=== PATIENT | male | born 1980 | race Caucasian/White ===

== ENCOUNTER 2021-09-07 09:22 | Emergency (ER) | payer OTHER, SELFPAY ==
[2021-09-07 09:28] VITALS: BP 156/123; PULSE 97; RESP 16; TEMP 36.8; O2SAT 99
--- NOTE | 2021-09-07 09:59 | ED.URI ---
HPI - URI/Sore Throat General Chief Complaint: Upper Respiratory Infection Stated Complaint: Sore Throat/Ear Pain Time Seen by Provider: 09/07/21 09:49 Source: patient and RN notes reviewed Mode of arrival: ambulatory Limitations: no limitations History of Present Illness HPI Narrative: Patient presents today with a 2-day history of sore throat, cough, congestion, left ear pain. Patient also reports muffled hearing to the left ear. Denies fever or shortness of breath. He has tried no medication for symptoms prior to arrival. MD elicited complaint: cough and sore throat Related Data Home Medications Medication Instructions Recorded Confirmed cholecalciferol (vitamin D3) 125 125 mcg PO DAILY 09/25/19 09/07/21 mcg (5,000 unit) capsule testosterone cypionate 100 mg/mL 50 mg IM .2xweek ml 09/25/19 09/07/21 intramuscular oil Allergies Allergy/AdvReac Type Severity Reaction Status Date / Time No Known Allergies Allergy Unverified 09/07/21 09:44 Review of Systems Review of Systems: CONSTITUTIONAL: Denies body aches, fever, chills, or sweats. EYES: Denies visual changes, redness, or discharge. ENT: Denies rhinorrhea. + Sore throat, congestion, left ear pain CARDIOVASCULAR: Denies chest pain, palpitations, or edema. RESPIRATORY: Denies dyspnea.+ Left ear pain GASTROINTESTINAL: Denies abdominal pain, nausea, vomiting, or diarrhea. GENITOURINARY: Denies dysuria or hematuria. SKIN: Denies rash, itching, or wounds. MUSCULOSKELETAL: Denies back pain, joint pain, or myalgia. NEUROLOGIC: Denies headache, numbness, tingling, or weakness. PSYCH: Denies depression or anxiety. [facility] Past Medical History Medical History Essential (primary) hypertension GERD (gastroesophageal reflux disease) Hypogonadism in male Obesity Surgical History Surgical History History of hip replacement Family History Family History Mother Heart disease Father Diabetes mellitus Heart disease Grandparent ALS (amyotrophic lateral sclerosis) Grandparent Heart disease Social History Social History Smoking status: Never smoker Alcohol intake: current Drinks per week: 2 Comments At time of signature, I have reviewed and agree with nursing past medical, surgical, social and family history unless otherwise noted. Please see nursing chart for further information. There is no relevant family history pertinent to the presenting complaint Exam Narrative: GENERAL: Well-appearing, well-nourished, and in no acute distress. HEAD: Normocephalic, atraumatic. EYES: EOMI. No redness or drainage. Conjunctivae normal. ENT: Mucous membranes pink and moist. Nares clear. No rhinorrhea. Right TM normal. Left TM is severely erythematous and bulging with purulent material. Throat erythematous with mild edema. No exudate. Uvula midline. NECK: Normal AROM. Supple. No lymphadenopathy. CHEST: No respiratory distress. Clear to auscultation. HEART: Regular rate and rhythm. No murmur appreciated. Normal peripheral pulses. EXTREMITIES: Normal range of motion. No edema. SKIN: Warm, dry, no rash. Capillary refill normal. Normal skin turgor. NEURO: No focal deficits. Alert and oriented x3. Gait steady. PSYCH: Normal affect. No signs of depression or anxiety. Course Course Level of Care: Express Care Visit Vital Signs Vital signs: Vital Signs Temperature 98.2 F 09/07/21 09:28 Pulse Rate 97 09/07/21 09:28 Respiratory Rate 16 09/07/21 09:28 Blood Pressure 156/123 H 09/07/21 09:28 Pulse Oximetry 99 09/07/21 09:28 Temperature 98.2 F 09/07/21 09:28 Pulse Rate 97 09/07/21 09:28 Respiratory Rate 16 09/07/21 09:28 Blood Pressure 162/110 H
[2021-09-07 10:05] VITALS: BP 162/110
== END 2021-09-07 10:09 | disposition home or self-care (01) ==
PROVIDERS: Emergency Provider Nurse Practitioner; PCP Internal Medicine
DX: J06.9 Acute upper respiratory infection, unspecified (principal); H66.002 Acute suppurative otitis media without spontaneous rupture of ear drum, left ear; I10 Essential (primary) hypertension; K21.9 Gastro-esophageal reflux disease without esophagitis; E66.9 Obesity, unspecified; Z68.34 Body mass index [BMI] 34.0-34.9, adult; Z96.641 Presence of right artificial hip joint
CPT/HCPCS: 87081; 87880; 99213; G0463

== ENCOUNTER 2021-10-06 13:06 | Outpatient (CLI) | payer OTHER, SELFPAY ==
--- NOTE | ~2021-10-06 | MR_ITS ---
EXAMINATION: MR brain/brain stem wo/w con DATE: 10/06/2021 15:37 INDICATION: Other specified abnormal findings of blood chemistry. Hyperprolactinemia. TECHNIQUE: Magnetic resonance imaging (MRI) of the brain and brainstem was performed without and with 20 mL MultiHance intravenous contrast. COMPARISON: None. FINDINGS: The pituitary demonstrates a height of 3 mm, and the sella is mildly expanded, consistent w ith empty sella. The infundibulum is at midline. There is no intracranial hemorrhage, acute infarctio n, or abnormal intracranial mass lesion. The ventricles are normal in size. There is mild mucosal thi ckening in the paranasal sinuses. The orbits are normal. There are bilateral otomastoid effusions. IMPRESSION: 1. Empty sella. Reviewed, dictated and finalized at location A. IMPRESSION: 1. Empty sella.
[2021-10-06 14:36] LABS: Estimated Glomerular Filt Rate > 60
== END 2021-10-06 13:07 | disposition home or self-care (01) ==
PROVIDERS: PCP Internal Medicine; Visit Provider Clinical Nurse Specialist
DX: R79.89 Other specified abnormal findings of blood chemistry (principal); Z87.898 Personal history of other specified conditions
CPT/HCPCS: 70553; A9577

== ENCOUNTER 2024-07-11 08:06 | Emergency (ER) | payer OTHER, SELFPAY ==
--- OUTSIDE RECORDS SUMMARY | 2024-07-11 08:11 | XMS_ITS | Referral Summary ---
Author Organization [facility] Address [address] [facility] [place] [address] Care Team Providers Care National Park Ranger Name Role Phone Jaspreet Albert MD Primary Care Provider [phone] Source Comments [facility],non-owned Affiliates and Associated Physician Practices is amultiple site organization consisting of ambulatory clinics and hospital sitesin [place], [place], [place]. This disclosure is being madepursuant to the Care Everywhere program and may not contain all information available regarding this patient. Last updated 18.[facility] Allergies No known active allergies Medications * Be aware that medications may not be up to date on this document. Alwaysverify current medications with the patient. Medication Sig Dispensed Refills Start Date End Date Status hydroCHLOROthiazid e (Hydrodiuril) 12.5 MG 12.5 MG ORALLY DAILY LAST REFILL UNTIL SEEN 08/12/2022 Activ e atorvastatin (Lipitor) 20 MG tablet Take 1 (one) tablet by mouth 08/07/2022 Active losartan (Cozaar) 100 MG tablet 100 MG ORALLY DAILY 08/07/2022 Ac tive esomeprazole (NexIUM) 20 MG capsule Take 1 (one) capsule by mouth once daily 06/21/2022 Active Testosterone Enanthate 100 MG/0.5ML SOAJ Inject 100 mg subcutaneously Two times a week Active Social History Tobacco Use Types Packs/Day Years Used Date Smoking Tobacco: Never Smokeless Tobacco: Never Alcohol Use Standard Drinks/Week Comments Never 0 (1 standard drink = 0.6 oz pur e alcohol) Sex and Gender Information Value Date Recorded Sex Assigned at Not on file Gender Identity Not on file Sexual Orientation Not on file Last Filed Vital Signs Vital Sign Reading Time Taken Comments Blood Pressure - - Pulse - - Temperature - - Respiratory Rate - - Oxygen Saturation - - Inhaled Oxygen Concentration - - Weight 94.3 kg (208 lb) 09/01/2022 3:42 PM CDT Height 170.2 cm (5' 7 ) 09/01/2022 3:42 PM CDT Body Mass Index 32.58 09/01/2022 3:42 PM CDT Plan of Treatment Not on file Care Teams National Park Ranger Relationship Specialty Start Date End Date Jaspreet Albert MD PCP - General 02/09/09
--- OUTSIDE RECORDS SUMMARY | 2024-07-11 08:11 | XMS_ITS | Clinical Summary ---
Author Organization [facility] Address [address] [place] [address] Care Team Providers Care Marketing Writer Name Role Phone Jaspreet Albert MD Primary Care Provider [phone] [facility],non-owned Affiliates and Associated Physician Practices is amultiple site organization consisting of ambulatory clinics and hospital sitesin [place], [place], [place] and [place]. This disclosure is being madepursuant to the Care Everywhere program and may not contain all information available regarding this patient. Last updated 18.[facility] Allergies No known active allergies Medications * [...] 09/01/2022 3:42 PM CDT Plan of Treatment Health Maintenance Due Date Last Done Comments HIV SCREENING 1995 HEPATITIS C SCREENING 03/25/1998 DTAP/TDAP/TD VACCINES (1 - Tdap) 1999 HEPATITIS B VACCINE (1 of 3 - 19+ 3-dose series) 1999 SCREENING FOR DIABETES 09/01/2022 COVID-19 VACCINE (1 - 2023-2 5 season) 2024 INFLUENZA VACCINE (#1) 2024 DEPRESSION SCREENING 06/04/2024 ZOSTER VACCINE (1 of 2) 2030 HIB VACCINE Aged Out No longer eligi ble based on patient's age to complete this topic HPV VACCINE Aged Out No longer eligi ble based on patient's age to complete this topic MENINGOCOCCAL (Group B) VACCINE Aged Out No longer eligible based on patient's age to complete this topic MENINGOCOCCAL VACCINE Aged Out No marissa leeroy eligible based on patient's age to complete this topic PNEUMOCOCCAL VACCINE Aged Out No long er eligible based on patient's age to complete this topic Care Teams Marketing Writer Relationship Specialty Start Date End Date Jaspreet Albert MD PCP - General 02/09/09
--- OUTSIDE RECORDS SUMMARY | 2024-07-11 08:11 | XMS_ITS | Referral Summary ---
Author Organization [facility] [address] [place] [address] [place] [id number] Care Team Providers Care Attic Fans Mechanic Name Role Phone Jaspreet Albert MD Primary Care Provider [phone] Allergies No known active allergies Medications cloNIDine (CATAPRES) 0.1 mg tablet 06/10/2017 Active lisinopril (PRINIVIL,ZESTR IL) 10 mg tablet 03/19/[address] (PROTONIX) 40 mg EC tablet 03/19/2018 Active methylPREDNISol one (MEDROL DOSEPACK) 4 mg Dosepack Take as directed on package 1 packet 03/19/2018 Active mometasone (ELOCON) 0.1 % solution APPLY 3 DROPS INTO BOTH EARS TWICE DAILY FOR 7 DAYS 30 mL 03/19/2018 Active Active Problems No known active problems Social History Tobacco Use Types Packs/Day Years Used Date Smoking Tobacco: Never Smokeless Tobacco: Never Personal Safety Answer Date Recorded Getting School Help Needed Not on file 08/17 Sex and Gender Information Value Date Recorded Sex Assigned at Not on file Legal Sex Male 1:07 AM SALES ENABLEMENT SPECIALIST Gender Identity Not on file Sexual Orientation Not on file Last Filed Vital Signs Vital Sign Reading Time Taken Comments Blood Pressure 152/90 03/19/2018 3:01 PM CDT Pulse 116 07/08/2017 4:55 PM SALES ENABLEMENT SPECIALIST Temperature 37.1 C (98.7 F) 07/08/2017 4:55 PM SALES ENABLEMENT SPECIALIST Respiratory Rate 17 07/08/2017 4:55 PM SALES ENABLEMENT SPECIALIST Oxygen Saturation 96% 07/08/2017 4:55 PM SALES ENABLEMENT SPECIALIST Inhaled Oxygen Concentration - - Weight 102.1 kg (225 lb) 03/19/2018 3:01 PM CDT Height 170.2 cm (5' 7 ) 03/19/2018 3:01 PM CDT Body Mass Index 35.24 03/19/2018 3:01 PM CDT Plan of Treatment Not on file Insurance [facility] PPO Care Teams Attic Fans Mechanic Relationship Specialty Start Date End Date Jaspreet Albert MD [address] [place] [address] PCP - General 08/18/10
--- OUTSIDE RECORDS SUMMARY | 2024-07-11 08:11 | XMS_ITS | Clinical Summary ---
Author Organization [facility] [address] [place] [address] [place] [id number] Care Team Providers Care Senior Technical Architect Name Role Phone Jaspreet Albert MD Primary Care Provider [phone] Allergies No known active allergies Medications cloNIDine [...] Active Active Problems No known active problems Surgical History Surgery Date Site/Laterality Comments HIP SURGERY Right Medical History Medical History Date Comments Hypertension Family History Medical History Relation Name Comments Heart disease Other Relation Name Status Comments Other Social History Tobacco Use Types Packs/Day Years Used Date Smoking Tobacco: Never Smokeless Tobacco: Never Personal Safety Answer Date Recorded Getting School Help Needed Not on file 08/17 Sex and Gender Information Value Date Recorded Sex Assigned at Not on file Legal Sex Male 1:07 AM WRAPPER STEMMER HAND Gender Identity Not on file Sexual Orientation Not on file Obstetrics History Last Filed Vital Signs Vital Sign Reading Time Taken Comments Blood Pressure 152/90 03/19/2018 3:01 PM CDT Pulse 116 07/08/2017 4:55 PM WRAPPER STEMMER HAND Temperature 37.1 C (98.7 F) 07/08/2017 4:55 PM WRAPPER STEMMER HAND Respiratory Rate 17 07/08/2017 4:55 PM WRAPPER STEMMER HAND Oxygen Saturation 96% 07/08/2017 4:55 PM WRAPPER STEMMER HAND Inhaled Oxygen Concentration - - Weight 102.1 kg (225 lb) 03/19/2018 3:01 PM CDT Height 170.2 cm (5' 7 ) 03/19/2018 3:01 PM CDT Body Mass Index 35.24 03/19/2018 3:01 PM CDT Plan of Treatment Not on file Insurance [facility] PPO Care Teams Senior Technical Architect Relationship Specialty Start Date End Date Jaspreet Albert MD [address] [place] [address] PCP - General 08/18/10
--- OUTSIDE RECORDS SUMMARY | 2024-07-11 08:11 | XMS_ITS | Clinical Summary ---
Author Organization [facility] Address [address] [place] [address] Phone Care Team Providers Care On Site Services Specialist Name Role Phone Jagjit Morales DO Primary Care Provider Allergies No known active allergies Medications cloNIDine (CATAPRES) 0.1 MG Tablet Take 0.1 mg by mouth 2 times daily. Active pantoprazole (PROTONIX) 40 MG Pack 40 mg by Per NG tube route daily. Active Testosterone Enanthate 100 MG/0.5ML Solution Auto-injector 100 mg by Subcutaneous route twice a week. Active ibuprofen (MOTRIN) 600 MG Tablet Take 1 Tab by mouth every 8 hours as needed for Mild or more severe pain. 30 Tab 0 Active Social History Tobacco Use Types Packs/Day Years Used Date Smoking Tobacco: Never Smokeless Tobacco: Never Alcohol Use Standard Drinks/Week Comments Yes 0 (1 standard drink = 0.6 oz pur e alcohol) Sex and Gender Information Value Date Recorded Sex Assigned at Not on file Legal Sex Male 7:57 PM CDT Gender Identity Not on file Sexual Orientation Not on file Last Filed Vital Signs Vital Sign Reading Time Taken Comments Blood Pressure 148/100 08/23/2019 4:30 PM CDT Pulse 86 08/23/2019 4:59 PM CDT Temperature 36.4 C (97.5 F) 08/23/2019 4:59 PM CDT Respiratory Rate 16 08/23/2019 2:14 PM CDT Oxygen Saturation 98% 08/23/2019 4:59 PM CDT Inhaled Oxygen Concentration - - Weight 117.9 kg (260 lb) 08/23/2019 2:14 PM CDT Height 170.2 cm (5' 7 ) 08/23/2019 2:14 PM CDT Body Mass Index 40.72 08/23/2019 2:14 PM CDT Plan of Treatment Health Maintenance Due Date Last Done Comments Hepatitis C Virus (HCV) Screening 1980 TdaP Immunization 1980 Hepatitis B Immunization (1 of 3 - 19+ 3-dose series) 1999 Influenza Immunization (#1) 2024 SARS-COV-2 Immunization ( - season) 2024 Respiratory Syncytial Virus (RSV) Immunization (Adult) (1 - 1-dose 75+ series) 2055 Meningococcal Immunization (ACWY) Aged Out No longer eligible based on patient's age to complete this topic Pneumococcal Immunization Combined Aged Out No longer eligible based on patient's age to complete this topic Rotavirus Immunization Aged Out No lo nger eligible based on patient's age to complete this topic Care Teams On Site Services Specialist Relationship Specialty Start Date End Date Jagjit Morales DO [address] [facility] [place] [address] PCP - General Internal Medicine 11/03/19
--- OUTSIDE RECORDS SUMMARY | 2024-07-11 08:11 | XMS_ITS | Patient Health Summary ---
Author Organization [facility] Address [facility] [facility] [place] [address] Care Team Providers Care Principal Hardware Architect Name Role Phone Jaspreet Albert MD Primary Care Provider [phone] Note from [facility],non-owned Affiliates and Associated Physician Practices is amultiple site organization consisting of ambulatory clinics and hospital sitesin [place], [place], [place] and [place]. This disclosure is being madepursuant to the Care Everywhere program and may not contain all information available regarding this patient. Last updated 18.[facility] Allergies No known active allergies Medications * Be aware that medications may not be up to date on this document. Alwaysverify current medications with the patient. * hydroCHLOROthiazide (Hydrodiuril) 12.5 MG(Started 08/12/2022) 12.5 MG ORALLY DAILY LAST REFILL UNTIL SEEN * atorvastatin (Lipitor) 20 MG tablet(Started 08/07/2022) Take 1 (one) tablet by mouth * losartan (Cozaar) 100 MG tablet(Started 08/07/2022) 100 MG ORALLY DAILY * esomeprazole (NexIUM) 20 MG capsule(Started 06/21/2022) Take 1 (one) capsule by mouth once daily * Testosterone Enanthate 100 MG/0.5ML SOAJ Inject 100 mg subcutaneously Two times a week Social History Tobacco Use Types Packs/Day Years [...] Mass Index 32.58 09/01/2022 3:42 PM CDT Procedures * AUDIOLOGY/TYMPANOMETRY ORDER(Performed 09/01/2022) Results * AUDIOLOGY/TYMPANOMETRY ORDER (09/01/2022 3:43 PM CDT) Radha Morales [facility] Care Teams Principal Hardware Architect Relationship Specialty Start Date End Date Jaspreet Albert MD PCP - General 02/09/09
[2024-07-11 08:15] VITALS: BP 148/93; PULSE 117; RESP 24; TEMP 36.7; O2SAT 97
--- NOTE | 2024-07-11 08:23 | ED.URI ---
HPI - URI/Sore Throat General Chief Complaint: Upper Respiratory Infection Stated Complaint: fever/chest tight/aches Time Seen by Provider: 07/11/24 08:23 Source: patient Mode of arrival: ambulatory Limitations: no limitations History of Present Illness HPI Narrative: 44-year-old male presents with complaint nasal congestion, fatigue, body aches, fever, coughing for 3 days. Temperature 101? F this morning took Tylenol prior to arrival. Reports [id number] cough medications not helping. Denies nausea vomiting diarrhea. All systems reviewed and negative except as noted above. Related Data Home Medications ?Medication ?Instructions ?Recorded ?Confirmed ?Last Taken ?Type testosterone cypionate 100 mg/mL 50 mg IM .2xweek 09/25/19 01/17/24 Unknown History intramuscular oil (Depo-Testosterone) multivitamin 1 tablet PO DAILY 09/04/23 01/17/24 Unknown History Allergies Allergy/AdvReac Type Severity Reaction Status Date / Time No Known Allergies Allergy Verified 07/11/24 08:18 Review of Systems Review of Systems: CONSTITUTIONAL: Reports fever, chills, or sweats. EYES: Denies visual changes, redness, or discharge. ENT: reports rhinorrhea, congestion. Denies sore throat, or otalgia. CARDIOVASCULAR: Denies chest pain, palpitations, or edema. RESPIRATORY: reports cough. Denies dyspnea. GASTROINTESTINAL: Denies abdominal pain, nausea, vomiting, or diarrhea. GENITOURINARY: Denies dysuria or hematuria. SKIN: Denies rash or itching. MUSCULOSKELETAL: Denies back pain, joint pain, or myalgia. NEUROLOGIC: Denies headache, numbness, or weakness. PSYCHIATRIC: Denies anxiety or depression. All other systems reviewed are negative, except as documented in HPI. [facility] Past Medical History Medical History Essential (primary) hypertension GERD (gastroesophageal reflux disease) Hypogonadism in male Obesity Surgical History Surgical History History of hip replacement Family History Family History Mother Heart disease Father Diabetes mellitus Heart disease Grandparent ALS (amyotrophic lateral sclerosis) Grandparent Heart disease Social History Social History Smoking status: Current every day smoker (vapes) Tobacco type: e-cigarettes/vaping Alcohol intake: current Drinks per week: 2 Substance use: never Lack of Transportation: No Lack of Food: Never True Current Housing: I Have Housing Concerned About Future Housing: No Difficulty Paying Gas/Electric Bills: No Difficulty Paying for Meds: No Currently Unemployed: No Education: Associate Degree Difficulty w/ Childcare or Family Care: No Comments At time of signature, agree with nursing past medical, surgical, social and family history. There is no relevant family history pertinent to the presenting complaint. Exam Narrative: GENERAL: This is a well-nourished, well-developed patient, ill-appearing but in no acute distress HEAD: normocephalic, atraumatic. EYES: PERRL. Sclera clear/white. Vision is grossly intact. EARS: External ears normal, auditory canals clear and without drainage, TMs normal without perforation. Hearing grossly intact. NOSE: External nose normal with nasal congestion, clear nasal drainage, erythema to bilateral nares THROAT: Mucous membranes moist, erythema without swelling or exudates NECK: Neck supple, non-tender without lymphadenopathy, masses or thyromegaly. CARDIOVASCULAR: Regular rate and rhythm without murmurs, gallops, or rubs. RESPIRATORY: Clear to auscultation. Breath sounds equal bilaterally. No wheezes, rales, or rhonchi. SKIN: warm, Dry, intact with no suspicious lesions or rash, good texture and turgor. NEURO: awake, alert, and oriented to person, place and time. There were no obvious focal neurologic abnormalities. EXTREMITIES: No joint tenderness, effusion, or edema noted. Course Course Level of Care: Express Care Visit Vital Signs Vital signs: Vital Signs Temperature 36.7 C 07/11/24 08:15 Pulse Rate 117 H 07/11/24 08:15 Respiratory Rate 24 H 07/11/24 08:15 Blood Pressure 148/93 H 07/11/24 08:15 Pulse Oximetry 97 07/11/24 08:15 Oxygen Delivery Room Air 07/11/24 08:15 Temperature 36.7 C 07/11/24 08:15 Pulse Rate 117 H 07/11/24 08:15 Respiratory Rate 24 H 07/11/24 08:15 Blood Pressure 148/93 H 07/11/24 08:15 Pulse Oximetry 97 07/11/24 08:15 Oxygen Delivery Room Air 07/11/24 08:15 review MDM - URI/Sore Throat MDM Narrative Medical decision making narrative: positive for influenza. Patient is alert, nontoxic. Please be advised this is a medical document. It is intended for [id number] communication. It is written in medical language and may contain unfamiliar abbreviations or verbiage. Medical documents are intended to carry relevant information, facts as evident, and the clinical opinion of the practitioner at the time of the encounter. This report may have been done utilizing a voice recognition system. Attempts have been made to correct errors. However, there may be uncorrected grammatical, spelling, and recognition errors present. The file time of this note does not necessarily represent the time of service. Discharge Plan Discharge Clinical Impression: Influenza A Patient Disposition: Home, Self-Care Condition: Stable Instructions: Influenza (ED) Additional Instructions: you were positive for influenza A today. Influenza is a virus and symptoms may last 10-14 days. Take medications as prescribed. Continue taking ibuprofen or Tylenol every 6-8 hours as needed for pain and fever. Purchase vanq-jrj-[id number] pseudoephedrine To treat congestion and take as directed on packaging. This medication is found by the pharmacy counter. drink at least 64 oz water a day. Follow-up with your primary care physician if symptoms are not improving. Patient Language: Mongolian Prescriptions: New benzonatate 200 mg capsule 200 mg PO TID PRN (Reason: cough) Qty: 20 0RF methylprednisolone [Medrol (Sandeep)] 4 mg tablets,dose pack See Rx Instructions PO .COMPLEX Qty: 21 0RF Rx Instructions: orally per package directions No Action multivitamin Tablet 1 tablet PO DAILY testosterone cypionate [Depo-Testosterone] 100 mg/mL oil 50 mg IM .2xweek Rx Instructions: as a single dose losartan 100 mg tablet 100 mg PO DAILY Qty: 90 1RF esomeprazole magnesium 20 mg capsule,delayed release(DR/EC) See Rx Instructions .ROUTE .COMPLEX Qty: 90 1RF Dose Instruction: TAKE 1 CAPSULE BY MOUTH EVERY DAY Rx Instructions: TAKE 1 CAPSULE BY MOUTH EVERY DAY hydrochlorothiazide 12.5 mg tablet See Rx Instructions .ROUTE .COMPLEX Qty: 90 1RF Dose Instruction: TAKE 1 TABLET BY MOUTH EVERY DAY Rx Instructions: TAKE 1 TABLET BY MOUTH EVERY DAY atorvastatin 20 mg tablet See Rx Instructions .ROUTE .COMPLEX Qty: 90 1RF Dose Instruction: TAKE 1 TABLET BY MOUTH EVERYDAY AT BEDTIME Rx Instructions: TAKE 1 TABLET BY MOUTH EVERYDAY AT BEDTIME Follow-up/Referrals: Jagjit Morales, [Primary Care Provider] - Stand Alone Forms: Work/School Release IP Time of Disposition: 08:35
[2024-07-11 08:32] LABS: EDCOVIDSCREEN Negative (Negative); EDINFLUASCREEN Positive (Negative); EDINFLUBSCREEN Negative (Negative)
== END 2024-07-11 08:35 | disposition home or self-care (01) ==
PROVIDERS: Emergency Provider Nurse Practitioner Family; PCP Internal Medicine
DX: J10.1 Influenza due to other identified influenza virus with other respiratory manifestations (principal); Z20.822 Contact with and (suspected) exposure to COVID-19; F17.290 Nicotine dependence, other tobacco product, uncomplicated; I10 Essential (primary) hypertension; K21.9 Gastro-esophageal reflux disease without esophagitis; E66.9 Obesity, unspecified; Z68.34 Body mass index [BMI] 34.0-34.9, adult
CPT/HCPCS: 87426; 87804; 99213; G0463

== ENCOUNTER 2025-04-06 06:48 | Day surgery (SDC) | payer OTHER, SELFPAY ==
[2025-01-27 12:51] VITALS: BMI 31.4
[2025-03-26 09:04] VITALS: BMI 30.7
--- OUTSIDE RECORDS SUMMARY | 2025-04-06 06:51 | XMS_ITS | Clinical Summary ---
Author Organization [facility] Address [address] [place] [address] Phone Care Team Providers Care Dampproofer Name Role Phone Jagjit Morales DO Primary [...] 2:14 PM CDT Height 170.2 cm (5' 7) 08/23/2019 2:14 PM CDT Body Mass Index 40.72 08/23/2019 2:14 PM CDT Plan of Treatment Health Maintenance Due Date Last Done Comments Hepatitis C Virus (HCV) Screening 1980 TdaP Immunization 1980 Hepatitis B Immunization (1 of 3 - 19+ 3-dose series) 1999 Human Papillomavirus (HPV) Immunization (1 - 3-dose SCDM series) 2007 Influenza Immunization (#1) 2025 SARS-COV-2 Immunization ( season) 2025 Cologuard 2025 Colonoscopy 2025 Colorectal Cancer Screening 2025 Immunochemical Fecal Occult Blood 2025 Respiratory Syncytial Virus (RSV) Immunization (Adult) (1 - 1-dose 75+ series) 2055 Meningococcal Immunization (ACWY) Aged Out No longer eligible based on patient's age to complete this topic Pneumococcal Immunization Combined Aged Out No longer eligible based on patient's age to complete this topic Rotavirus Immunization Aged Out No lo nger eligible based on patient's age to complete this topic Care Teams Dampproofer Relationship Specialty Start Date End Date Jagjit Morales DO [facility] [facility] [place] [address] PCP - General Internal Medicine 11/03/19
--- OUTSIDE RECORDS SUMMARY | 2025-04-06 06:51 | XMS_ITS | Clinical Summary ---
Author Organization [email or web address] Address [address] [facility] [place] [address] Care Team Providers Care Wafer Fab Operator Name Role Phone Jaspreet Albert MD Primary Care Provider [phone] Source Comments [email or web address],non-owned Affiliates and Associated Physician Practices is amultiple site organization consisting of ambulatory clinics and hospital sitesin [place], [place], [place] and [place]. This disclosure is being madepursuant to the Care Everywhere program and may not contain all information available regarding this patient. Last updated 18.[facility] Allergies No known active allergies Medications * Be aware that medications may not be up to date on this document. Alwaysverify current medications with the patient. hydroCHLOROthi azide (Hydrodiuril) 12.5 MG 12.5 MG ORALLY DAILY LAST REFILL UNTIL SEEN 3 Active atorvastatin (Lipitor) 20 MG tablet Take 1 (one) tablet by mouth 3 Active losartan (Cozaar) 100 MG tablet 100 MG ORALLY DAILY 3 Active esomeprazole (NexIUM) 20 MG capsule Take 1 (one) capsule by mouth once daily 3 Active Testosterone Enanthate 100 MG/0.5ML SOAJ Inject 100 mg subcutaneously Two times a week Active Social History Tobacco Use Types Packs/Day Years Used Date Smoking Tobacco: Never Smokeless Tobacco: Never Alcohol Use Standard Drinks/Week Comments Never 0 (1 standard drink = 0.6 oz pur e alcohol) Sex and Gender Information Value Date Recorded Sex Assigned at Not on file 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 Gender Identity Not on file Sexual Orientation Not on file Last Filed Vital Signs Vital Sign Reading Time Taken Comments Blood Pressure - - Pulse - - Temperature - - Respiratory Rate - - Oxygen Saturation - - Inhaled Oxygen Concentration - - Weight 94.3 kg (208 lb) 09/01/2022 3:42 PM CDT Height 170.2 cm (5' 7) 09/01/2022 3:42 PM CDT Body Mass Index 32.58 09/01/2022 3:42 PM CDT Plan of Treatment Health Maintenance Due Date Last Done Comments COLOGUARD (AGES 45-75) - COL ON CA SCREENING 1980 COLON MONITORING 1980 COLONOSCOPY - COLON CA SCREENING 1980 CT COLONOGRAPHY - COLON CA SCREENING 1980 Colorectal Cancer Screening 1980 FIT - COLON CA SCREENING 1980 FLEX SIG - COLON CA SCREENING 1980 HIV SCREENING 1995 HEPATITIS C SCREENING 03/25/1998 DTAP/TDAP/TD VACCINES (1 - Tdap) 1999 HEPATITIS B VACCINE (1 of 3 - 19+ 3-dose series) 1999 HPV VACCINE (1 - 3-dose SCDM series) 2007 SCREENING FOR DIABETES 09/01/2022 DEPRESSION SCREENING 06/04/2024 COVID-19 VACCINE (1 - 2023-2 5 season) 2025 INFLUENZA VACCINE (#1) 2025 ZOSTER VACCINE (1 of 2) 2030 HIB VACCINE Aged Out No longer eligi ble based on patient's age to complete this topic MENINGOCOCCAL (Group B) VACC INE SHARED DECISION-MAKING Aged Out No longer eligibl e based on patient's age to complete this topic MENINGOCOCCAL GROUPS A/C/Y/W VACCINE Aged Out No longer eligible b ased on patient's age to complete this topic PNEUMOCOCCAL VACCINE Aged Out No long er eligible based on patient's age to complete this topic Insurance [employer] Care Teams Wafer Fab Operator Relationship Specialty Start Date End Date Jaspreet Albert MD PCP - General 02/09/09
--- OUTSIDE RECORDS SUMMARY | 2025-04-06 06:51 | XMS_ITS | Clinical Summary ---
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 Gender Identity Not on file Sexual Orientation Not on file Last Filed Vital Signs Vital Sign Reading Time Taken Comments Blood Pressure 152/90 03/19/2018 3:01 PM CDT Pulse 116 07/08/2017 4:55 PM TRAINING TECHNICIAN Temperature 37.1 C (98.7 F) 07/08/2017 4:55 PM TRAINING TECHNICIAN Respiratory Rate 17 07/08/2017 4:55 PM TRAINING TECHNICIAN Oxygen Saturation 96% 07/08/2017 4:55 PM TRAINING TECHNICIAN Inhaled Oxygen Concentration - - Weight 102.1 kg (225 lb) 03/19/2018 3:01 PM CDT Height 170.2 cm (5' 7) 03/19/2018 3:01 PM CDT Body Mass Index 35.24 03/19/2018 3:01 PM CDT Plan of Treatment Not on file Insurance [facility] PPO Care Teams Button Tacker Relationship Specialty Start Date End Date Jaspreet Albert MD [address] [place] [address] PCP - General 08/18/10
[2025-04-06 07:07] VITALS: BP 134/91; PULSE 89; RESP 16; TEMP 36.6; O2SAT 98
[2025-04-06] MEDS: LACTATED RINGERS 1,000 ML 150 ML IV CONT (07:09)
--- NOTE | 2025-04-06 07:27 | WPDANESEPPF ---
Anes - Initial Pre Proc Eval Procedure: Operation Date: 04/06/25 08:30 Proposed Procedures p Screening Colonoscopy - Jose E Middleton MD Date/Time: 04/06/25 07:27 Surgeon: Jose E Middleton MD Pre Op Diagnosis: Encounter for screening for malignant neoplasm of Patient Data Age: 45 Gender: M Height: 1.7 m Weight: 87.9 kg Last Vital Signs Temp 98 F 04/06/25 07:07 Pulse 89 04/06/25 07:07 Resp 16 04/06/25 07:07 BP 134/91 H 04/06/25 07:07 Pulse Ox 98 04/06/25 07:07 O2 Del Method Room Air 04/06/25 07:07 Allergies Allergy/AdvReac Type Severity Reaction Status Date / Time No Known Allergies Allergy Verified 04/06/25 07:05 Home Medications ?Medication ?Instructions ?Recorded ?Confirmed ?Type testosterone cypionate 100 mg/mL 50 mg IM .2xweek 09/25/19 04/06/25 History intramuscular oil (Depo-Testosterone) multivitamin 1 tablet PO DAILY 09/04/23 04/06/25 History esomeprazole magnesium 20 mg See Rx Instructions .Route 12/22/24 04/06/25 Rx capsule,delayed release .COMPLEX #90 caps hydrochlorothiazide 25 mg tablet 25 mg PO DAILY #90 tabs 01/20/25 04/06/25 Rx atorvastatin 20 mg tablet See Rx Instructions .Route 01/26/25 04/06/25 Rx .COMPLEX #90 tabs losartan 100 mg tablet 100 mg PO DAILY #90 tabs 03/24/25 04/06/25 Rx Patient hx anesthesia problems: none Family hx anesthesia problems: none Results Review: All pre-operative results and documents have been reviewed as part of the pre-operative evaluation. [facility] Past Medical History Medical History Obesity Hypogonadism in male Essential (primary) hypertension GERD (gastroesophageal reflux disease) Surgical History Surgical History History of hip replacement Family History Family History Mother Heart disease Father Diabetes mellitus Heart disease Grandparent ALS (amyotrophic lateral sclerosis) Grandparent Heart disease Social History Social History Years smoked: 2 Smoking status: Current every day smoker Tobacco type: e-cigarettes/vaping Alcohol intake: current Drinks per week: 28 Alcohol use details: 4 BEERS A DAY Substance use: never Substance use type: does not use Lack of Transportation: No Lack of Food: Never True Current Housing: I Have Housing Concerned About Future Housing: No Difficulty Paying Gas/Electric Bills: No Difficulty Paying for Meds: No Currently Unemployed: No Education: Associate Degree Difficulty w/ Childcare or Family Care: No Living arrangements: with family Spiritual care concerns: No Anes - Eval Final PreProcedure Day of Procedure 04/06/25 07:27 Heart: regular rate and rhythm Lungs: clear to auscultation Airway: Mallampati scale class IV Neurological: alert and oriented Last oral intake: >/= 8 hours ASA classification: II Anesthetic plan: proceed Anesthesia type and monitoring: monitored anesthesia care Results Review: All pre-operative results and documents have been reviewed as part of the pre-operative evaluation. Informed Consent: The patient's anesthetic plan and its attendant risks and benefits were discussed with the patient/family/POA. Questions were solicited and answers provided to the satisfaction of the patient/family/POA.
--- NOTE | 2025-04-06 08:19 | PM.IMHP ---
H&P: HPI History of Present Illness Date/Time: 04/06/25 08:19 Chief Complaint: Screening colonoscopy Narrative: This is the patient's first colonoscopy. There are no GI symptoms and there is no family history of colorectal cancer. Review of Systems Review of Systems: All systems reviewed & are unremarkable except as noted in HPI and below PMFSH Past Medical History Medical History Obesity Hypogonadism in male Essential (primary) hypertension GERD (gastroesophageal reflux disease) Surgical History Surgical History History of hip replacement Family History Family History Mother Heart disease Father Diabetes mellitus Heart disease Grandparent ALS (amyotrophic lateral sclerosis) Grandparent Heart disease Social History Social History Years smoked: 2 Smoking status: Current every day smoker Tobacco type: e-cigarettes/vaping Alcohol intake: current Drinks per week: 28 Alcohol use details: 4 BEERS A DAY Substance use: never Substance use type: does not use Lack of Transportation: No Lack of Food: Never True Current Housing: I Have Housing Concerned About Future Housing: No Difficulty Paying Gas/Electric Bills: No Difficulty Paying for Meds: No Currently Unemployed: No Education: Associate Degree Difficulty w/ Childcare or Family Care: No Living arrangements: with family Spiritual care concerns: No Meds Home Medications and Allergies Home Medications ?Medication ?Instructions ?Recorded ?Confirmed ?Type testosterone cypionate 100 mg/mL 50 mg IM .2xweek 09/25/19 04/06/25 History intramuscular oil (Depo-Testosterone) multivitamin 1 tablet PO DAILY 09/04/23 04/06/25 History esomeprazole magnesium 20 mg See Rx Instructions .Route 12/22/24 04/06/25 Rx capsule,delayed release .COMPLEX #90 caps hydrochlorothiazide 25 mg tablet 25 mg PO DAILY #90 tabs 01/20/25 04/06/25 Rx atorvastatin 20 mg tablet See Rx Instructions .Route 01/26/25 04/06/25 Rx .COMPLEX #90 tabs losartan 100 mg tablet 100 mg PO DAILY #90 tabs 03/24/25 04/06/25 Rx Allergies Allergy/AdvReac Type Severity Reaction Status Date / Time No Known Allergies Allergy Verified 04/06/25 07:05 Vital Signs Vital Signs - 24 hr 04/06/25 07:07 Temperature 98 F Pulse Rate 89 Respiratory Rate 16 Blood Pressure 134/91 H Pulse Oximetry 98 Oxygen Delivery Room Air Exam Const: General: cooperative and healthy appearing Resp: Effort & Inspection: normal respiratory effort and able to speak in complete sentences Auscultation: clear to auscultation bilaterally Cardio: Rate: regular rate Rhythm: regular rhythm GI: Inspection: normal to inspection GI Palp: No No hepatosplenomegaly present Auscultation: normal bowel sounds Rectal Exam: deferred Skin: General skin exam: normal color Psych: Appearance: grossly normal Mental Status: mental status grossly normal Assessment and Plan Assessment and plan (1) Screening for colon cancer: Code(s): Z12.11 - Encounter for screening for malignant neoplasm of colon Status: Acute Assessment and Plan: The patient is deemed a good candidate for the procedure. Consent signed. Will proceed.
--- NOTE | 2025-04-06 08:40 | WPDANESPN ---
Anes - Prog Note Post-Op Date/Time: 04/06/25 08:40 Vital Signs: Last Vital Signs Temp 98 F 04/06/25 07:07 Pulse 89 04/06/25 07:07 Resp 16 04/06/25 07:07 BP 134/91 H 04/06/25 07:07 Pulse Ox 98 04/06/25 07:07 O2 Del Method Room Air 04/06/25 07:07 Pain Score (VAS): no Patient Feedback: Patient satisfied with anesthetic care.
[2025-04-06 08:49] VITALS: BP 104/68; PULSE 90; RESP 16; O2SAT 97
[2025-04-06 08:59] VITALS: BP 154/73; PULSE 92; RESP 18; O2SAT 98
[2025-04-06 09:09] VITALS: BP 127/76; PULSE 81; RESP 18; O2SAT 100
== END 2025-04-06 09:16 | disposition home or self-care (01) ==
PROVIDERS: PCP Internal Medicine; Referring Provider Nurse Practitioner; Visit Provider Internal Medicine Gastroenterology
PROC: 0DJD8ZZ Inspection of Lower Intestinal Tract, Via Natural or Artificial Opening Endoscopic (ICD-10-PCS; CPT 45378; principal; 2025-04-06 08:30)
DX: Z12.11 Encounter for screening for malignant neoplasm of colon (principal); D12.3 Benign neoplasm of transverse colon; K62.1 Rectal polyp; K57.30 Diverticulosis of large intestine without perforation or abscess without bleeding; K64.8 Other hemorrhoids
CPT/HCPCS: 45385

== ENCOUNTER 2025-04-06 10:08 | Outpatient (NON) | payer OTHER, SELFPAY ==
--- NOTE | 2025-04-06 | S_PTH ---
PATIENT: Tomasz De Paz LOC: [facility] #:[id number] AGE/SX: 45/M ROOM: RE04/06/[address]: Jose E Middleton MD : 1980 BED: DIS: 04/06/2025 SPEC #: [id number] RECD: 04/07/25 11:40 STATUS: DERECK REQ #: [id number] CARL: 04/06/25 00:[address]: Jose E Middleton DEPT: [facility] Surgical RECD BY: Lanny Kern ENTERED: 04/07/25 11:40 SP TYPE: Surgical OTHR DR: Jagjit Morales, Tissues: A - Colon Polypectomy B - Rectal Polyp Procedures: Hematoxylin and Eosin Stain Gross and Microscopic Level 4
--- OUTSIDE RECORDS SUMMARY | 2025-04-07 11:34 | XMS_ITS | Clinical Summary ---
Author Organization [facility] Address [address] [place] [address] Phone Care Team Providers Care District Loss Prevention Manager Name Role Phone Jagjit Morales DO Primary [...] age to complete this topic Care Teams District Loss Prevention Manager Relationship Specialty Start Date End Date Jagjit Morales DO [facility] [place] [address] PCP - General Internal Medicine 11/03/19
--- OUTSIDE RECORDS SUMMARY | 2025-04-07 11:34 | XMS_ITS | Clinical Summary ---
Author Organization [email or web address] Address [address] [facility] [place] [address] Care Team Providers Care Computer Graphics Illustrator Name Role Phone Jaspreet Albert MD Primary Care Provider [phone] Source Comments [email or web address],non-owned Affiliates and Associated Physician Practices is amultiple site organization consisting of ambulatory clinics and hospital sitesin [place], [place] and [place]. This disclosure is being madepursuant to the Care Everywhere program and may not contain all information available regarding this patient. 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
--- OUTSIDE RECORDS SUMMARY | 2025-04-07 11:34 | XMS_ITS | Clinical Summary ---
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 Gender Identity Not on file Sexual Orientation Not on file Last Filed Vital Signs Vital Sign Reading Time Taken Comments Blood Pressure 152/90 03/19/2018 3:01 PM CDT Pulse 116 07/08/2017 4:55 PM TAX CREDIT LEASING CONSULTANT Temperature 37.1 C (98.7 F) 07/08/2017 4:55 PM TAX CREDIT LEASING CONSULTANT Respiratory Rate 17 07/08/2017 4:55 PM TAX CREDIT LEASING CONSULTANT Oxygen Saturation 96% 07/08/2017 4:55 PM TAX CREDIT LEASING CONSULTANT Inhaled Oxygen Concentration - - Weight 102.1 kg (225 lb) 03/19/2018 3:01 PM CDT Height 170.2 cm (5' 7) 03/19/2018 3:01 PM CDT Body Mass Index 35.24 03/19/2018 3:01 PM CDT Plan of Treatment Not on file Insurance [facility] PPO [facility] HMO/PPO Address: [facility] [id number] [place] [phone] Care Teams Digital Marketing Intern Relationship Specialty Start Date End Date Jaspreet Albert MD [address] [place] [address] PCP - General 08/18/10
== END 2025-04-06 10:09 | disposition home or self-care (01) ==
PROVIDERS: PCP Internal Medicine; Visit Provider Internal Medicine Gastroenterology
DX: Z12.11 Encounter for screening for malignant neoplasm of colon (principal); D12.3 Benign neoplasm of transverse colon; K62.1 Rectal polyp
CPT/HCPCS: 88305